=== PATIENT | female | born 1955 | race Two or more races ===

== ENCOUNTER 2023-05-14 15:20 | Inpatient (IN) | payer MEDICARE, MEDICAID ==
[~2023-05-14] VITALS: Ht 167.6 cm; Wt 68.9 kg
[2023-05-14 16:41] LABS: CALCIUM, SERUM 9.4 mg/dL (8.5-10.1); POTASSIUM 3.9 mmol/L (3.5-5.1)
[2023-05-14 16:47] LABS: ALBUMIN 3.3 g/dL (3.4-5.0); BILIRUBIN,DIRECT 0.1 mg/dL (0.0-0.2); BILIRUBIN,TOTAL 0.7 mg/dL (0.2-1.0); TOTAL PROTEIN, SERUM 7.7 g/dL (6.4-8.2)
[2023-05-14 16:50] LABS: BASOPHILS % (AUTO) 0.2 % (0.0-2.0); HEMATOCRIT 37 % (33-45); LYMPHOCYTES % (AUTO) 21.8 % (20.0-44.0); MEAN CORPUSCULAR HEMOGLOBIN 28 PG (26.0-33.0); MEAN CORPUSCULAR HGB CONC 32 g/dl (31.0-36.0); MEAN CORPUSCULAR VOLUME 86 fL (82-100); MONOCYTES # (AUTO) 0.5 K/uL (0.1-1.30); MONOCYTES % (AUTO) 5.4 % (2.0-12.0); NEUTROPHILS # (AUTO) 6.6 K/uL (1.8-8.9); NEUTROPHILS % (AUTO) 72.6 % (43.0-81.0); PLATELET COUNT (AUTO) 246 K/uL (150-450); RED BLOOD CELL COUNT(AUTO) 4.33 MIL/uL (4.0-5.2); RED CELL DISTRIBUTION WIDTH 15.8 % (11.5-15.0)
[2023-05-14] MEDS: LEVETIRACETAM (500MG) 1,500 MG in IV NS 0.9% 85 ML IV SCH (20:00)
[2023-05-14 21:40] VITALS: BP 114/68; TEMP 98.2; O2SAT 97
[2023-05-14 22:34] LABS: APPEARANCE,URINE TURBID (CLEAR); BILIRUBIN,URINE NEGATIVE (NEGATIVE); BLOOD, URINE 2+ Ery/uL (NEGATIVE); COLOR,URINE DARK YELLOW (YELLOW); KETONES,URINE NEGATIVE (NEGATIVE); LEUKOCYTE ESTERASE ,URINE 3+ (NEGATIVE); NITRITE, URINE NEGATIVE (NEGATIVE); PH,URINE 6.5 (5.0-8.0); PROTEIN,URINE NEGATIVE (NEGATIVE); UGLUCOSE NEGATIVE (NEGATIVE); UROBILINOGEN,URINE 0.2 EU/dL (0.2)
[2023-05-14 22:39] LABS: ADD URINE CULTURE YES; BACTERIA,URINE Moderate /HPF (None Seen); SQUAMOUS EPITHELIAL CELL,UR Rare /HPF (None Seen); WBC,URINE 21-50 /HPF (0-3)
[2023-05-15] VITALS (8 sets, daily range): BP systolic 91–118; BP diastolic 49–95; TEMP 97.9–99; O2SAT 94–99
[2023-05-15] MEDS ORDERED: LORAZEPAM INJ 2 MG/ML VIAL IV PRN
[2023-05-15] MEDS ORDERED: ONDANSETRON HCL/PF 4 MG/2 ML VIAL IVP PRN
[2023-05-15] MEDS ORDERED: MAG HYDROX/AL HYDROX/SIMETH 30 ML UDC PO PRN
[2023-05-15] MEDS ORDERED: ACETAMINOPHEN 325 MG TABLET PO PRN
[2023-05-15] MEDS ORDERED: ZOLPIDEM TARTRATE 5 MG TABLET PO PRN
[2023-05-15] MEDS ORDERED: Z GUARD REMEDY 4 OZ OINT TP PRN
[2023-05-15] MEDS: PANTOPRAZOLE 40 MG TABLET.DR PO SCH (07:29)
[2023-05-15 07:53] LABS: CALCIUM, SERUM 9.6 mg/dL (8.5-10.1); MAGNESIUM 2.1 mg/dL (1.8-2.4); PHOSPHORUS 4.3 mg/dL (2.5-4.9); POTASSIUM 4.3 mmol/L (3.5-5.1)
[2023-05-15] MEDS: LEVETIRACETAM (500MG) 500 MG in IV NS 0.9% 100 ML IV SCH (07:57)
[2023-05-15] MEDS ORDERED: ACET650S11 RC (08:26)
[2023-05-15] MEDS ORDERED: FAMO-131 PO (08:26)
[2023-05-15] MEDS ORDERED: RISP2TAB5 PO (08:26)
[2023-05-15] MEDS ORDERED: MAGN400O6 PO (08:26)
[2023-05-15] MEDS ORDERED: HYDR-3642 PO (08:26)
[2023-05-15] MEDS ORDERED: HYDR-4075 PO (08:26)
[2023-05-15] MEDS ORDERED: HONE44PA TP (08:26)
[2023-05-15] MEDS ORDERED: BISA10SU11 RC (08:26)
[2023-05-15] MEDS ORDERED: NA P133E RC (08:26)
[2023-05-15] MEDS ORDERED: BUPR150T5 PO (08:26)
[2023-05-15] MEDS ORDERED: ENOX40DI SQ (08:26)
[2023-05-15] MEDS ORDERED: MELA3TAB41 PO (08:26)
[2023-05-15] MEDS ORDERED: BENA20TA78 PO (08:26)
[2023-05-15] MEDS: ENOXAPARIN SODIUM 40 MG/0.4 ML DISP.SYRIN SQ SCH (08:52)
[2023-05-15 09:17] LABS: BASOPHILS % (AUTO) 0.4 % (0.0-2.0); EOSINOPHILS % (AUTO) 0.1 % (0.0-6.0); HEMATOCRIT 32 % (33-45); HEMOGLOBIN 10.7 g/dL (11.5-14.8); LYMPHOCYTES # (AUTO) 3.1 K/uL (0.8-4.8); LYMPHOCYTES % (AUTO) 38.6 % (20.0-44.0); MEAN CORPUSCULAR HEMOGLOBIN 28 PG (26.0-33.0); MEAN CORPUSCULAR HGB CONC 33 g/dl (31.0-36.0); MEAN CORPUSCULAR VOLUME 85 fL (82-100); MONOCYTES # (AUTO) 0.8 K/uL (0.1-1.30); MONOCYTES % (AUTO) 9.7 % (2.0-12.0); NEUTROPHILS # (AUTO) 4.1 K/uL (1.8-8.9); NEUTROPHILS % (AUTO) 51.2 % (43.0-81.0); PLATELET COUNT (AUTO) 256 K/uL (150-450); RED BLOOD CELL COUNT(AUTO) 3.79 MIL/uL (4.0-5.2); RED CELL DISTRIBUTION WIDTH 15.7 % (11.5-15.0)
[2023-05-15] MEDS ORDERED: hydrALAZINE HCL 10 MG TABLET PO PRN (17:00)
[2023-05-15] MEDS ORDERED: hydrOXYzine 10 MG TABLET PO PRN (17:00)
[2023-05-15] MEDS ORDERED: BISACODYL SUPP (10 MG) 10 MG/SUPP.RECT SUPP.RECT RC PRN (17:00)
[2023-05-15] MEDS ORDERED: ACETAMINOPHEN 650 MG/SUPP.RECT RC PRN (17:00)
[2023-05-15] MEDS ORDERED: MAGNESIUM HYDROXIDE 30 ML UDC PO PRN ×2 (17:00)
[2023-05-15] MEDS ORDERED: NA PHOS,M-B/NA PHOS,DI-BA 1 EA ENEMA RC PRN (17:00)
[2023-05-16] VITALS: BP 95/62; TEMP 98.6; O2SAT 99
[2023-05-16 00:28] VITALS: BP 95/52; TEMP 98.6; O2SAT 99
[2023-05-16 04:00] VITALS: BP 104/63; TEMP 98.4; O2SAT 97
[2023-05-16] MEDS ORDERED: FAMOTIDINE (20 MG) 20 MG TABLET PO SCH (07:30)
[2023-05-16 08:06] LABS: CALCIUM, SERUM 9.2 mg/dL (8.5-10.1); CREATININE 0.9 mg/dL (0.6-1.3); MAGNESIUM 2.2 mg/dL (1.8-2.4); PHOSPHORUS 3.8 mg/dL (2.5-4.9); POTASSIUM 3.9 mmol/L (3.5-5.1)
[2023-05-16 08:30] VITALS: BP 98/51; TEMP 99; O2SAT 97
[2023-05-16 08:42] LABS: THYROID STIMULATING HORMONE 2.045 uIU/mL (0.358-3.74); URIC ACID 4.1 mg/dL (2.6-7.2)
[2023-05-16] MEDS: risperiDONE 1 MG TABLET PO SCH (08:45)
[2023-05-16] MEDS: buPROPion SR 150 MG TABLET.ER PO SCH (08:45)
[2023-05-16] MEDS: BENAZEPRIL HCL 20 MG TABLET PO SCH (08:59)
[2023-05-16] MEDS ORDERED: ENOXAPARIN SODIUM 40 MG/0.4 ML DISP.SYRIN SQ SCH (09:00)
[2023-05-16 16:00] VITALS: BP 115/68; TEMP 99; O2SAT 98
[2023-05-16 20:00] VITALS: BP 115/70; TEMP 97.9; O2SAT 99
[2023-05-17] VITALS: BP 118/72; TEMP 97.9; O2SAT 96
[2023-05-17 00:27] VITALS: BP 118/72; TEMP 97.9; O2SAT 96
[2023-05-17 04:00] VITALS: BP 114/64; TEMP 98.2; O2SAT 96
[2023-05-17 05:14] VITALS: BP 114/64; TEMP 98.2; O2SAT 96
[2023-05-17 07:50] LABS: BASOPHILS % (AUTO) 0.3 % (0.0-2.0); EOSINOPHILS # (AUTO) 0.1 K/uL (0.0-0.7); EOSINOPHILS % (AUTO) 0.9 % (0.0-6.0); HEMATOCRIT 33 % (33-45); LYMPHOCYTES % (AUTO) 54.6 % (20.0-44.0); MEAN CORPUSCULAR HEMOGLOBIN 27 PG (26.0-33.0); MEAN CORPUSCULAR HGB CONC 33 g/dl (31.0-36.0); MEAN CORPUSCULAR VOLUME 83 fL (82-100); MONOCYTES # (AUTO) 0.5 K/uL (0.1-1.30); MONOCYTES % (AUTO) 8.8 % (2.0-12.0); NEUTROPHILS % (AUTO) 35.4 % (43.0-81.0); PLATELET COUNT (AUTO) 302 K/uL (150-450); RED CELL DISTRIBUTION WIDTH 14.9 % (11.5-15.0); WHITE BLOOD COUNT (AUTO) 5.5 K/uL (4.3-11.0)
[2023-05-17 08:13] LABS: CREATININE 0.9 mg/dL (0.6-1.3); POTASSIUM 4.2 mmol/L (3.5-5.1)
[2023-05-17] MEDS ORDERED: CEFTRIAXONE 1 G in IV D5W 50 ML IV SCH (13:00)
[2023-05-17] MEDS: LEVOFLOXACIN 500 MG /D5W 100ML 500 MG in PREMIX 1 EA IV SCH (13:01)
[2023-05-17 16:00] VITALS: BP 119/66; TEMP 98.4; O2SAT 98
[2023-05-17 20:00] VITALS: BP_SYST 100; BP_SYST 111; BP_DIAS 64; BP_DIAS 69; TEMP 98.8; O2SAT 97
[2023-05-17] MEDS: LEVETIRACETAM (250 MG) 250 MG TABLET PO SCH (20:13)
[2023-05-18] VITALS: BP 110/77; TEMP 98.4; O2SAT 97
[2023-05-18 04:00] VITALS: BP 133/71; TEMP 98.7; O2SAT 98
[2023-05-18 07:03] LABS: CALCIUM, SERUM 9.6 mg/dL (8.5-10.1); CREATININE 0.9 mg/dL (0.6-1.3); POTASSIUM 4.7 mmol/L (3.5-5.1)
[2023-05-18 07:31] LABS: BASOPHILS % (AUTO) 0.5 % (0.0-2.0); EOSINOPHILS # (AUTO) 0.1 K/uL (0.0-0.7); EOSINOPHILS % (AUTO) 0.9 % (0.0-6.0); HEMATOCRIT 38 % (33-45); HEMOGLOBIN 12.5 g/dL (11.5-14.8); LYMPHOCYTES # (AUTO) 3.9 K/uL (0.8-4.8); MEAN CORPUSCULAR HEMOGLOBIN 28 PG (26.0-33.0); MEAN CORPUSCULAR HGB CONC 33 g/dl (31.0-36.0); MEAN CORPUSCULAR VOLUME 84 fL (82-100); MONOCYTES # (AUTO) 0.5 K/uL (0.1-1.30); NEUTROPHILS # (AUTO) 2.5 K/uL (1.8-8.9); NEUTROPHILS % (AUTO) 35.6 % (43.0-81.0); PLATELET COUNT (AUTO) 242 K/uL (150-450); RED BLOOD CELL COUNT(AUTO) 4.52 MIL/uL (4.0-5.2); RED CELL DISTRIBUTION WIDTH 15.4 % (11.5-15.0); WHITE BLOOD COUNT (AUTO) 6.9 K/uL (4.3-11.0)
[2023-05-18 08:48] LABS: EOSINOPHILS % (MANUAL) 1 % (0-4); LYMPHOCYTES % (MANUAL) 61 % (16-48); MONOCYTES % (MANUAL) 4 % (0-11.0); NEUTROPHILS % (MANUAL) 34 (42-76); PLATELET ESTIMATE ADEQUATE
[2023-05-18 08:49] VITALS: BP 143/80; TEMP 97.6; O2SAT 96
[2023-05-18 08:49] LABS: ANISOCYTOSIS 1+; HYPOCHROMASIA 1+
[2023-05-18] MEDS ORDERED: LEVE250T2 PO (09:42)
[2023-05-18] MEDS ORDERED: LEVO500T90 PO (09:42)
[2023-05-18] MEDS: LEVOFLOXACIN (250MG) 250 MG TABLET PO SCH (12:10)
== END 2023-05-18 16:00 | DRG 101 ==
LOC: ER 15:32 → TELE 20:48
PROVIDERS: ADMIT Student in an Organized Health Care Education/Training Program; ATTEND Internal Medicine
PROC: 4A00X4Z Measurement of Central Nervous Electrical Activity, External Approach (ICD-10-PCS; principal; 2023-05-16)
DX: G40.909 Epilepsy, unspecified, not intractable, without status epilepticus (principal); E44.1 Mild protein-calorie malnutrition; N39.0 Urinary tract infection, site not specified; E22.2 Syndrome of inappropriate secretion of antidiuretic hormone; D68.59 Other primary thrombophilia; E78.5 Hyperlipidemia, unspecified; F25.9 Schizoaffective disorder, unspecified; I10 Essential (primary) hypertension; F32.A Depression, unspecified; Z20.822 Contact with and (suspected) exposure to COVID-19; Z68.24 Body mass index [BMI] 24.0-24.9, adult; F39 Unspecified mood [affective] disorder; B96.1 Klebsiella pneumoniae [K. pneumoniae] as the cause of diseases classified elsewhere
CPT/HCPCS: 36415; 70450-TC; 80048-TC; 80076-TC; 81001; 83735-TC; 84100-TC; 84443-TC; 84550-TC; 85025-TC; 87081-TC; 87086-TC; 95819-TC; A4216; A4223; G0378; J0696; J1650; J1953; J1956; J7030; J7060